=== PATIENT | male | born 1950 | race Caucasian/White ===

== ENCOUNTER 2021-02-18 10:58 | Emergency (ER) | payer SELFPAY ==
--- NOTE | 2021-02-18 12:04 | EDM.PDOC ---
ED HPI GENERAL MEDICAL PROBLEM - General Chief Complaint: General Stated Complaint: UNABLE TO URINATE OR HAVE A BOWEL MOVEMENT Time Seen by Provider: 02/18/21 11:10 Source of Information: Reports: Patient, RN Notes Reviewed History Limitations: Reports: No Limitations - History of Present Illness INITIAL COMMENTS - FREE TEXT/NARRATIVE: Patient is a 71-year-old male presenting to the emergency department with complaints of lower abdominal pain, inability to void, and inability have a bowel movement. He reports last bowel movement was on Thursday morning. Prior to this, he did have but 24 hours worth of diarrhea which he attributed to stomach flu. States he ate some cheese which normally causes constipation for him. His diarrhea did resolve, however he has not been able to have a bowel movement since Thursday. He also reports that over the course the weekend, he has been unable to void. He has been continuously dribbling urine but unable to empty any significant amount. Reports lower abdominal pain and pressure. Denies any nausea or vomiting, but states he has been belching quite frequently. Denies any fever or chills. Treatments INDUCTION HEAT TREATER: Reports: Other (see below) Other Treatments INDUCTION HEAT TREATER: stool softner Lower Abdomen Pain Score (Numeric/FACES): 9 - Related Data Allergies Allergy/AdvReac Type Severity Reaction Status Date / Time No Known Allergies Allergy Verified 02/18/21 11:14 Home Meds: Home Meds Sulfamethoxazole/Trimethoprim [Bactrim Ds Tablet] 1 each PO BID 7 Days #14 tablet 02/18/21 [Rx] Tamsulosin [Tamsulosin 24 Hr] 0.4 mg PO DAILY #30 cap.er 02/18/21 [Rx] Past Medical History - Past Health History Medical/Surgical History: Denies Medical/Surgical History Social & Family History - Tobacco Use Tobacco Use Status *Q: Former Tobacco User Used Tobacco, but Quit: Yes Month/Year Tobacco Last Used: 2013 - Caffeine Use Caffeine Use: Reports: Coffee, Soda, Tea - Recreational Drug Use Recreational Drug Use: No ED ROS GENERAL - Review of Systems Review Of Systems: See Below Constitutional: Reports: No Symptoms. Denies: Fever, Chills HEENT: Reports: No Symptoms Respiratory: Reports: No Symptoms Cardiovascular: Reports: No Symptoms Endocrine: Reports: No Symptoms GI/Abdominal: Reports: Abdominal Pain, Constipation. Denies: Diarrhea, Nausea, Vomiting : Reports: Pain, Urinary Retention Musculoskeletal: Reports: No Symptoms Skin: Reports: No Symptoms Neurological: Reports: No Symptoms Psychiatric: Reports: No Symptoms Hematologic/Lymphatic: Reports: No Symptoms Immunologic: Reports: No Symptoms ED EXAM, GENERAL - Physical Exam Exam: See Below Exam Limited By: No Limitations General Appearance: Alert, WD/WN, No Apparent Distress Respiratory/Chest: No Respiratory Distress, Lungs Clear, Normal Breath Sounds, No Accessory Muscle Use, Chest Non-Tender Cardiovascular: Normal Peripheral Pulses, Regular Rate, Rhythm, No Edema, No Gallop, No JVD, No Murmur, No Rub GI/Abdominal: Normal Bowel Sounds, Soft, No Organomegaly, No Distention, No Abno rmal Bruit, No Mass, Distended, Tender (mid-lower abdominal tenderness) Neurological: Alert, Oriented, CN II-XII Intact, Normal Cognition, Normal Gait, Normal Reflexes, No Motor/Sensory Deficits Psychiatric: Normal Affect, Normal Mood Skin Exam: Warm, Dry, Intact, Normal Color, No Rash Course - Vital Signs Last Recorded V/S: Last Vital Signs Temp 97.8 F 02/18/21 11:12 Pulse 83 02/18/21 11:12 Resp 20 02/18/21 11:12 BP 203/111 H 02/18/21 11:12 Pulse Ox 97 02/18/21 11:12 - Orders/Labs/Meds Labs: Laboratory Tests 02/18/21 02/18/21 02/18/21 Range/Units 11:30 11:32 11:32 WBC 22.21 H (4.23-9.07) K/mm3 RBC 5.13 (4.63-6.08) M/mm3 Hgb 15.6 (13.7-17.5) gm/dl Hct 46.5 (40.1-51.0) % MCV 90.6 (79.0-92.2) fl MCH 30.4 (25.7-32.2) pg MCHC 33.5 (32.2-35.5) g/dl RDW Std Deviation 46.8 H (35.1-43.9) fL Plt Count 251 (163-337) K/mm3 MPV 9.9 (9.4-12.3) fl Neut % (Auto) 87.4 H (34.0-67.9) % Lymph % (Auto) 4.8 L (21.8-53.1) % [place] % (Auto) 7.3 (5.3-12.2) % Eos % (Auto) 0 L (0.8-7.0) Baso % (Auto) 0.1 (0.1-1.2) % Neut # (Auto) 19.41 H (1.78-5.38) K/mm3 Lymph # (Auto) 1.06 L (1.32-3.57) K/mm3 [place] # (Auto) 1.62 H (0.30-0.82) K/mm3 Eos # (Auto) 0.00 L (0.04-0.54) K/mm3 Baso # (Auto) 0.03 (0.01-0.08) K/mm3 Manual Slide Review Abnormal smear Sodium 138 (136-145) mEq/L Potassium 4.0 (3.5-5.1) mEq/L Chloride 102 (98-107) mEq/L Carbon Dioxide 25 (21-32) mEq/L Anion Gap 15.0 (5-15) BUN 26 H (7-18) mg/dL Creatinine 1.5 H (0.7-1.3) mg/dL Est Cr Clr Drug Dosing 52.53 mL/min Estimated GFR (MDRD) 46 (>60) mL/min BUN/Creatinine Ratio 17.3 (14-18) Glucose 148 H (70-99) mg/dL Calcium 10.1 (8.5-10.1) mg/dL Total Bilirubin 1.4 H (0.2-1.0) mg/dL AST 29 (15-37) U/L ALT 35 (16-63) U/L Alkaline Phosphatase 86 (46-116) U/L C-Reactive Protein (<1.0) mg/dL Total Protein 7.7 (6.4-8.2) g/dl Albumin 3.6 (3.4-5.0) g/dl Globulin 4.1 gm/dL Albumin/Globulin Ratio 0.9 L (1-2) Urine Color [place] H (Yellow) Urine Appearance Clear (Clear) Urine pH 6.0 (5.0-8.0) Ur Specific [place] 1.025 (1.005-1.030) Urine Protein 1+ H (Negative) Urine Glucose (UA) Negative (Negative) Urine Ketones Negative (Negative) Urine Occult Blood 1+ H (Negative) Urine Nitrite Positive H (Negative) Urine Bilirubin Negative (Negative) Urine Urobilinogen 1.0 (0.2-1.0) Ur Leukocyte Esterase Negative (Negative) Urine RBC 0-5 (0-5) /hpf Urine WBC 0-5 (0-5) /hpf Ur Squamous Epith Cells Not seen (0-5) /hpf Urine Bacteria Few (FEW) /hpf Urine Mucus Few (FEW) /hpf 02/18/21 Range/Units 11:32 WBC (4.23-9.07) K/mm3 RBC (4.63-6.08) M/mm3 Hgb (13.7-17.5) gm/dl Hct (40.1-51.0) % MCV (79.0-92.2) fl MCH (25.7-32.2) pg MCHC (32.2-35.5) g/dl RDW Std Deviation (35.1-43.9) fL Plt Count (163-337) K/mm3 MPV (9.4-12.3) fl Neut % (Auto) (34.0-67.9) % Lymph % (Auto) (21.8-53.1) % [place] % (Auto) (5.3-12.2) % Eos % (Auto) (0.8-7.0) Baso % (Auto) (0.1-1.2) % Neut # (Auto) (1.78-5.38) K/mm3 Lymph # (Auto) (1.32-3.57) K/mm3 [place] # (Auto) (0.30-0.82) K/mm3 Eos # (Auto) (0.04-0.54) K/mm3 Baso # (Auto) (0.01-0.08) K/mm3 Manual Slide Review Sodium (136-145) mEq/L Potassium (3.5-5.1) mEq/L Chloride (98-107) mEq/L Carbon Dioxide (21-32) mEq/L Anion Gap (5-15) BUN (7-18) mg/dL Creatinine (0.7-1.3) mg/dL Est Cr Clr Drug Dosing mL/min Estimated GFR (MDRD) (>60) mL/min BUN/Creatinine Ratio (14-18) Glucose (70-99) mg/dL Calcium (8.5-10.1) mg/dL Total Bilirubin (0.2-1.0) mg/dL AST (15-37) U/L ALT (16-63) U/L Alkaline Phosphatase (46-116) U/L C-Reactive Protein 3.5 H* (<1.0) mg/dL Total Protein (6.4-8.2) g/dl Albumin (3.4-5.0) g/dl Globulin gm/dL Albumin/Globulin Ratio (1-2) Urine Color (Yellow) Urine Appearance (Clear) Urine pH (5.0-8.0) Ur Specific [place] (1.005-1.030) Urine Protein (Negative) Urine Glucose (UA) (Negative) Urine Ketones (Negative) Urine Occult Blood (Negative) Urine Nitrite (Negative) Urine Bilirubin (Negative) Urine Urobilinogen (0.2-1.0) Ur Leukocyte Esterase (Negative) Urine RBC (0-5) /hpf Urine WBC (0-5) /hpf Ur Squamous Epith Cells (0-5) /hpf Urine Bacteria (FEW) /hpf Urine Mucus (FEW) /hpf - Re-Assessments/Exams Free Text/Narrative Re-Assessment/Exam: 02/18/21 12:02 Patient has had approximately 1200 mils of aubrie-colored urine out of his Gmoez catheter. Reports pain improved significantly after Gomez catheter insertion and emptying of his bladder. Abdomen flat and upright x-rays reviewed by myself and Dr. Goodman. Patient does have a significant amount of air throughout his colon but no air-fluid levels to suggest bowel obstruction. He does have a ball of stool in the rectum. Patient declined a soapsuds enema. States "I am a private person ". He would like to go home and give himself an enema. 02/18/21 12:31 Hematology significant for WBC elevated at 22.21, BUN 26, creatinine 1.5, glucose 148, total bili 1.4, CRP 3.5. Urinalysis shows aubrie color, 1+ protein, 1+ occult blood, positive nitrites. Radiologist interpretation of the abdomen flat and upright show findings suspicious for colonic ileus. Given his elevated WBCs, I recommend a CT scan of the abdomen pelvis to rule out any intra-abdom inal infection, however he refused this. Reports that he would like to be treated for urinary tract infection and go home and give himself an enema. If his symptoms do not improve, he says he will come back to the ER. He is concerned with the cost of additional testing. Emphasized to him that by not completing the tests, there could be infection or other intra-abdominal pathology that goes untreated leading to possible sepsis or . He verbalized understanding of this. States that he will come back if he does not get better. We will send him a prescription for Bactrim for urinary tract infection as well as a mineral oil enema. Recommended referral to urology, however patient declined stating he does not want to go to [facility]. Referral will be sent to Larisa Mccarthy NP in the clinic, to have Gomez catheter removed towards the end of the week. Discharge instructions as documented. Departure - Departure Time of Disposition: 12:57 Disposition: Home, Self-Care 01 Condition: Good Clinical Impression: UTI, Urinary tract infectious disease, Acute urinary retention Elevated white blood cell count, unspecified Qualifiers: Leukocytosis type: unspecified Qualified Code(s): D72.829 - Elevated white blood cell count, unspecified - Discharge Information *PRESCRIPTION DRUG MONITORING PROGRAM REVIEWED*: No *COPY OF PRESCRIPTION DRUG MONITORING REPORT IN PATIENT TAMMY: No Prescriptions: Sulfamethoxazole/Trimethoprim [Bactrim Ds Tablet] 1 each PO BID 7 Days #14 tablet Tamsulosin [Tamsulosin 24 Hr] 0.4 mg PO DAILY #30 cap.er Instructions: Urinary Tract Infection, Adult, Acute Urinary Retention, Male Referrals: Larisa Mccarthy NP [Nurse Practitioner] - Forms: ED Department Discharge Additional Instructions: You were seen in the emergency department today for inability to urinate or have a bowel movement. Gomez catheter was inserted which did drain a significant amount of urine from your bladder. Blood work was completed did show that you have elevated white blood cells. CT scan was recommended, however you declined this. Urinalysis did show urinary tract infection. You have been started on Bactrim for treatment of urinary tract infection as well as Flomax to help with passing of your urine through the prostate. Follow the Gomez catheter care instructions as discussed with you by the nurse. Referral has been sent to Larisa Garcia NP in the clinic. Recommend calling to schedule a follow-up appoint with her towards the end of the week to have the catheter removed. You have also been sent home with a mineral oil enema. Use this when you get home. If your symptoms fail to improve or you experience any worsening symptoms, recommend return to the emergency department for reevaluation. Sepsis Event Note (ED) - Evaluation Sepsis Screening Result: No Definite Risk
--- NOTE | 2021-02-18 12:20 | CR ---
Abdomen: Supine and upright views of the abdomen were obtained. Comparison: No prior abdominal imaging is available. Mildly gas-dilated colon is seen. This is suspicious for ileus. No free air is seen. Bony structures appear within normal limits for the patient's age. No abnormal calcifications are seen. Impression: 1. Findings suspicious for colonic ileus. Diagnostic code #2
== END 2021-02-18 13:22 | disposition home or self-care (01) ==
LOC: JD.ED 10:58
DX: N39.0 Urinary tract infection, site not specified (principal); R33.9 Retention of urine, unspecified; D72.829 Elevated white blood cell count, unspecified; Z87.891 Personal history of nicotine dependence
CPT/HCPCS: 36415; 51702; 74019; 74019-26; 80053; 81001; 85025; 86140; 87086; 99284; 99284-25

== ENCOUNTER 2021-02-23 06:24 | Emergency (ER) | payer SELFPAY ==
--- NOTE | 2021-02-23 07:25 | EDM.PDOC ---
ED HPI GENERAL MEDICAL PROBLEM - General Chief Complaint: Genitourinary Problem Stated Complaint: GENITOURINARY ISSUES Time Seen by Provider: 02/23/21 07:01 Source of Information: Reports: Patient History Limitations: Reports: No Limitations - History of Present Illness INITIAL COMMENTS - FREE TEXT/NARRATIVE: The patient presents with urinary retention. He was seen here last week and was retaining urine. A olmos cath was placed. He had it removed at 2 yesterday. He has not urinated since then He has lower abdominal pain. Onset: Gradual Duration: Day(s): (Yesterday) Location: Reports: Abdomen Quality: Reports: Sharp Severity: Moderate Improves with: Reports: None Worsens with: Reports: None Associated Symptoms: Reports: No Other Symptoms Bladder Pain Score (Numeric/FACES): 10 - Related Data Allergies Allergy/AdvReac Type Severity Reaction Status Date / Time No Known Allergies Allergy Verified 02/23/21 06:36 Home Meds: Home Meds Sulfamethoxazole/Trimethoprim [Bactrim Ds Tablet] 1 each PO BID 7 Days #14 tablet 02/18/21 [Rx] Tamsulosin [Tamsulosin 24 Hr] 0.4 mg PO DAILY #30 cap.er 02/18/21 [Rx] Past Medical History - Past Health History Medical/Surgical History: Denies Medical/Surgical History Social & Family History - Caffeine Use Caffeine Use: Reports: Coffee, Soda, Tea ED ROS GENERAL - Review of Systems Review Of Systems: See Below Constitutional: Reports: No Symptoms HEENT: Reports: No Symptoms Respiratory: Reports: No Symptoms Cardiovascular: Reports: No Symptoms Endocrine: Reports: No Symptoms GI/Abdominal: Reports: Abdominal Pain : Reports: Urinary Retention ED EXAM, RENAL/ - Physical Exam Exam: See Below Exam Limited By: No Limitations General Appearance: Alert, No Apparent Distress Ears: Normal External Exam Nose: Normal Inspection Head: Atraumatic, Normocephalic Neck: Normal Inspection Respiratory/Chest: No Respiratory Distress GI/Abdominal: Other (Pain is better my nurse put in a olmos cath) Course - Vital Signs Last Recorded V/S: Last Vital Signs Temp 96.2 F L 02/23/21 06:31 Pulse 89 02/23/21 06:31 Resp 20 02/23/21 06:31 BP 205/102 H 02/23/21 06:31 Pulse Ox 97 02/23/21 06:31 - Orders/Labs/Meds Orders: Active Orders 24 hr Category Date Time Status Bladder Scan [RC] ASDIRECTED Care 02/23/21 06:46 Active Insert Olmos Catheter [Insert Urinary Catheter] [OM.PC] Care 02/23/21 07:15 Ordered Q24H Urinary Catheter Assessment [RC] ASDIRECTED Care 02/23/21 07:06 Active - Re-Assessments/Exams Free Text/Narrative Re-Assessment/Exam: 02/23/21 07:25 Bladder scan shows he has 1175mls. A olmos cath was placed. 02/23/21 07:43 He feels much better. I will discharge him home and follow up with Sophie Wilson or urology. Departure - Departure Time of Disposition: 07:45 Disposition: Home, Self-Care 01 Condition: Good Clinical Impression: Acute urinary retention - Discharge Information *PRESCRIPTION DRUG MONITORING PROGRAM REVIEWED*: Not Applicable *COPY OF PRESCRIPTION DRUG MONITORING REPORT IN PATIENT TAMMY: Not Applicable Referrals: PCP,None [Primary Care Provider] - Sophie Wilson PA-C [Physician Associate Professor Of Biostatistics] - 1 Week Sim Aguayo MD [Ordering Only Provider] - 1 Week Forms: ED Department Discharge Additional Instructions: Take your medication as prescribed. Follow up with Sophie Wilson or Dr Aguayo a urologist in [place]. Please return if you are worse. Sepsis Event Note (ED) - Evaluation Sepsis Screening Result: No Definite Risk - Focused Exam Vital Signs: Vital Signs Temp Pulse Resp BP Pulse Ox 02/23/21 06:31 96.2 F L 89 20 205/102 H 97
== END 2021-02-23 08:18 | disposition home or self-care (01) ==
LOC: JD.ED 06:24
DX: R33.9 Retention of urine, unspecified (principal); Z79.899 Other long term (current) drug therapy
CPT/HCPCS: 51702; 99283; 99283-25

== ENCOUNTER 2021-03-01 22:26 | Emergency (ER) | payer SELFPAY ==
[2021-03-01] MEDS ORDERED: Phenazopyridine 95 MG Tab PO ONE (23:06)
--- NOTE | 2021-03-01 23:47 | EDM.PDOC ---
ED HPI GENERAL MEDICAL PROBLEM - General Chief Complaint: Genitourinary Problem Stated Complaint: NEEDS A CATH Time Seen by Provider: 03/01/21 22:45 Source of Information: Reports: Patient History Limitations: Reports: No Limitations - History of Present Illness INITIAL COMMENTS - FREE TEXT/NARRATIVE: The patient presents for urinary retention. He was here on the for the same. He took it out this morning and has not urinated since. He did not follow up with urology yet. He did have a UTI and has been treated for that. Onset: Gradual Duration: Hour(s): Location: Reports: Abdomen Quality: Reports: Sharp Severity: Moderate Improves with: Reports: None Worsens with: Reports: None Associated Symptoms: Reports: No Other Symptoms Bladder Pain Score (Numeric/FACES): 10 - Related Data Allergies Allergy/AdvReac Type Severity Reaction Status Date / Time No Known Allergies Allergy Verified 03/01/21 22:54 Home Meds: Home Meds Tamsulosin [Tamsulosin 24 Hr] 0.4 mg PO DAILY #30 cap.er 02/18/21 [Rx] Past Medical History - Past Health History Medical/Surgical History: Denies Medical/Surgical History Genitourinary History: Reports: Retention, Urinary Social & Family History - Tobacco Use Tobacco Use Status *Q: Current Status Unknown - Caffeine Use Caffeine Use: Reports: None ED ROS GENERAL - Review of Systems Review Of Systems: See Below Constitutional: Reports: No Symptoms HEENT: Reports: No Symptoms Respiratory: Reports: No Symptoms Cardiovascular: Reports: No Symptoms Endocrine: Reports: No Symptoms GI/Abdominal: Reports: Abdominal Pain. Denies: Diarrhea, Nausea, Vomiting : Reports: Urinary Retention ED EXAM, RENAL/ - Physical Exam Exam: See Below Exam Limited By: No Limitations General Appearance: Alert, No Apparent Distress Ears: Normal External Exam Nose: Normal Inspection Head: Atraumatic, Normocephalic Neck: Normal Inspection Respiratory/Chest: No Respiratory Distress GI/Abdominal: Tender (mild to lower abdomen) Course - Vital Signs Last Recorded V/S: Last Vital Signs Temp 97.4 F 03/01/21 22:52 Pulse 84 03/01/21 22:52 Resp 18 03/01/21 22:52 BP 138/82 03/01/21 22:52 Pulse Ox 98 03/01/21 22:52 - Orders/Labs/Meds Orders: Active Orders 24 hr Category Date Time Status Insert Urinary Catheter [OM.PC] Q24H Care 03/01/21 23:15 Ordered Urinary Catheter Assessment [RC] ASDIRECTED Care 03/01/21 23:12 Active Labs: Laboratory Tests 03/01/21 Range/Units 22:57 Urine Color Yellow (Yellow) Urine Appearance Clear (Clear) Urine pH 6.0 (5.0-8.0) Ur Specific [place] 1.025 (1.005-1.030) Urine Protein Negative (Negative) Urine Glucose (UA) Negative (Negative) Urine Ketones Negative (Negative) Urine Occult Blood Negative (Negative) Urine Nitrite Negative (Negative) Urine Bilirubin Negative (Negative) Urine Urobilinogen 0.2 (0.2-1.0) Ur Leukocyte Esterase Negative (Negative) Meds: Medications Discontinued Medications Generic Name Dose Route Start Last Admin Trade Name Freq PRN Reason Stop Dose Admin Phenazopyridine HCl 95 mg 03/01/21 23:06 03/01/21 23:15 Phenazopyridine 95 Mg Tab PO 03/01/21 23:07 95 mg ONETIME ONE Administration - Re-Assessments/Exams Free Text/Narrative Re-Assessment/Exam: 03/01/21 23:46 Bladder scan showed over a liter of urine. Gomez catheter was placed. He had some bladder spasms after that so I ordered pyridium. His UA shows no UTI. 03/01/21 23:51 I will discharge him home with follow up with Dr Aguayo or one of his partners. Departure - Departure Time of Disposition: 23:55 Disposition: Home, Self-Care 01 Condition: Good Clinical Impression: Acute urinary retention - Discharge Information *PRESCRIPTION DRUG MONITORING PROGRAM REVIEWED*: Not Applicable *COPY OF PRESCRIPTION DRUG MONITORING REPORT IN PATIENT TAMMY: Not Applicable Referrals: PCP,None [Primary Care Provider] - Sophie Wilson PA-C [Physician Strand Forming Machine Operator] - 1 Week Sim Aguayo MD [Ordering Only Provider] - 1 Week Forms: ED Department Discharge Additional Instructions: Keep taking your medications as prescribed. Follow up with Dr Aguayo a urologist in [place] or one of his partners. Follow up with Sophie Wilson. Please return if you are worse. Sepsis Event Note (ED) - Evaluation Sepsis Screening Result: No Definite Risk - Focused Exam Vital Signs: Vital Signs Temp Pulse Resp BP Pulse Ox 03/01/21 22:52 97.4 F 84 18 138/82 98 - My Orders Last 24 Hours: My Active Orders 03/01/21 23:12 Urinary Catheter Assessment [RC] ASDIRECTED 03/01/21 23:15 Insert Urinary Catheter [OM.PC] Q24H - Assessment/Plan Last 24 Hours: My Active Orders 03/01/21 23:12 Urinary Catheter Assessment [RC] ASDIRECTED 03/01/21 23:15 Insert Urinary Catheter [OM.PC] Q24H
== END 2021-03-02 00:17 | disposition home or self-care (01) ==
LOC: JD.ED 22:26
DX: R33.9 Retention of urine, unspecified (principal); Z79.899 Other long term (current) drug therapy
CPT/HCPCS: 51702; 81003; 99284; A9270

== ENCOUNTER 2021-03-31 19:07 | Emergency (ER) | payer SELFPAY ==
[2021-03-31] MEDS ORDERED: Acetaminophen/oxyCODONE 325-5 MG Tab PO ONE (19:43)
--- NOTE | 2021-03-31 19:47 | EDM.PDOC ---
ED HPI GENERAL MEDICAL PROBLEM - General Chief Complaint: Genitourinary Problem Stated Complaint: cath is plugged Time Seen by Provider: 03/31/21 19:35 Source of Information: Reports: Patient, RN Notes Reviewed History Limitations: Reports: No Limitations - History of Present Illness INITIAL COMMENTS - FREE TEXT/NARRATIVE: Patient is a 71-year-old male who presents to the ER for the evaluation of his urinary retention, patient was seen in this ER last month, and has had a catheter placed for urinary retention. Patient states that it became plugged today and was not draining, so he cut the bag off of the tube, and pulled the tube out of his bladder, he noted that there was some sediment in the tube that he pulled out of the penis. Patient states he is not been able to pee since then, he only dribbles just a little bit. No fevers no chills, no cough no shortness of breath, or any worsening sick-like symptoms, he is having some pain to his lower abdomen/suprapubic area, due to his bladder being extremely full. Patient did not take anything for pain management prior to coming to the ER. Groin Pain Score (Numeric/FACES): 9 - Related Data Allergies Allergy/AdvReac Type Severity Reaction Status Date / Time No Known Allergies Allergy Verified 03/31/21 19:22 Home Meds: Home Meds Tamsulosin [Tamsulosin 24 Hr] 0.4 mg PO DAILY #30 cap.er 02/18/21 [Rx] Cefdinir [Omnicef] 300 mg PO BID 7 Days #14 cap 03/31/21 [Rx] Past Medical History - Past Health History Medical/Surgical History: Denies Medical/Surgical History Genitourinary History: Reports: Retention, Urinary Endocrine/Metabolic History: Reports: Obesity/BMI 30+ Social & Family History - Tobacco Use Tobacco Use Status *Q: Never Tobacco User - Caffeine Use Caffeine Use: Reports: Coffee - Recreational Drug Use Recreational Drug Use: No ED ROS GENERAL - Review of Systems Review Of Systems: Comprehensive ROS is negative, except as noted in HPI. ED EXAM, RENAL/ - Physical Exam Exam: See Below Exam Limited By: No Limitations General Appearance: Alert, WD/WN, No Apparent Distress Respiratory/Chest: No Respiratory Distress, Lungs Clear, Normal Breath Sounds, No Accessory Muscle Use, Chest Non-Tender Cardiovascular: Normal Peripheral Pulses, Regular Rate, Rhythm, No Edema GI/Abdominal: Normal Bowel Sounds, Soft, No Distention, No Mass, Tender (suprapubic tenderness/fullness) (Male) Exam: Suprapubic Fullness. No: Penile Lesions, Scrotal Swelling, Scrotum Tenderness (L), Scrotum Tenderness (R), Testicular Tenderness (L), Testicular Tenderness (R), Urethral Discharge Extremities: Normal Inspection, Normal Capillary Refill Neurological: Alert, Oriented, Normal Cognition, No Motor/Sensory Deficits Psychiatric: Anxious (pt appears to be in moderate amount of pain) Skin Exam: Warm, Dry, Intact, Normal Color, No Rash Course - Vital Signs Last Recorded V/S: Last Vital Signs Temp 96.9 F 03/31/21 19:20 Pulse 123 H 03/31/21 19:20 Resp 16 03/31/21 19:20 BP 214/127 H 03/31/21 19:20 Pulse Ox 98 03/31/21 19:20 - Orders/Labs/Meds Orders: Active Orders 24 hr Category Date Time Status Gomez Catheter Insertion [Insert Urinary Catheter] [OM. Care 03/31/21 19:41 Ordered PC] Stat Urinary Catheter Assessment [RC] ASDIRECTED Care 03/31/21 19:42 Active URINALYSIS W/MICROSCOPIC [UA W/MICROSCOPIC] [URIN] Stat Lab 03/31/21 19:34 Received Labs: Laboratory Tests 03/31/21 Range/Units 19:34 Urine Color Yellow (Yellow) Urine Appearance Slt cloudy H (Clear) Urine pH 6.5 (5.0-8.0) Ur Specific [place] > or = 1.030 (1.005-1.030) Urine Protein 1+ H (Negative) Urine Glucose (UA) Negative (Negative) Urine Ketones Negative (Negative) Urine Occult Blood 2+ H (Negative) Urine Nitrite Positive H (Negative) Urine Bilirubin Negative (Negative) Urine Urobilinogen 0.2 (0.2-1.0) Ur Leukocyte Esterase 3+ H (Negative) Meds: Medications Discontinued Medications Generic Name Dose Route Start Last Admin Trade Name Freq PRN Reason Stop Dose Admin Cefdinir 300 mg 03/31/21 20:32 Cefdinir 300 Mg Cap PO 03/31/21 20:33 ONETIME ONE Oxycodone/Acetaminophen 2 tab 03/31/21 19:43 Acetaminophen/Oxycodone 325-5 Mg Tab PO 03/31/21 19:44 ONETIME ONE - Re-Assessments/Exams Free Text/Narrative Re-Assessment/Exam: 03/31/21 19:46 Patient presents in urinary retention, we will go ahead and get a Gomez catheter placed, it does appear as if they have collected a urine sample at the time of triage. Patient was requesting something for pain so I have ordered 2 tablets of Percocet 5/325 mg for management. 03/31/21 20:33 Urinalysis is grossly positive for UTI, nitrite positive, 3+ leukocyte Estrace, will go ahead and start the patient on Omnicef for management, and have him follow-up in a few days if not much better. Urine culture has been sent. Departure - Departure Time of Disposition: 20:34 Disposition: Home, Self-Care 01 Condition: Good Clinical Impression: Urinary retention UTI (urinary tract infection) Qualifiers: Urinary tract infection type: acute cystitis Hematuria presence: with hematuria Qualified Code(s): N30.01 - Acute cystitis with hematuria - Discharge Information *PRESCRIPTION DRUG MONITORING PROGRAM REVIEWED*: No *COPY OF PRESCRIPTION DRUG MONITORING REPORT IN PATIENT TAMMY: No Prescriptions: Cefdinir [Omnicef] 300 mg PO BID 7 Days #14 cap Instructions: Urinary Tract Infection, Adult, [id number] Referrals: PCP,None [Primary Care Provider] - Forms: ED Department Discharge Additional Instructions: You have been evaluated in the ED for your urinary symptoms. Your urinalysis was consistent with an acute urinary tract infection. Your urine was sent for culture, and you will be notified if you should need a change in yo ur antibiotic. This may take up to 48 hours to result. A Gomez catheter was again placed into your bladder, to help facilitate bladder drainage. You have been given a prescription for Omnicef (cefdinir), 300 mg 1 tablet 2 times a day for 7 days. Please note that the antibiotics can take up to 48 hours to start working. Your first dose was given in the ER today, you will need to go to the [place] pharmacy located in the [facility], tomorrow to pick these up and take as directed. Please increase your oral fluid intake and try to stay adequately hydrated. Please follow-up with your regular care provider, at the next available appointment, to make sure that your symptoms are getting better as expected. Please return to the ED if your symptoms change or worsen. Sepsis Event Note (ED) - Evaluation Sepsis Screening Result: No Definite Risk - Focused Exam Vital Signs: Vital Signs Temp Pulse Resp BP Pulse Ox 03/31/21 19:20 96.9 F 123 H 16 214/127 H 98 - My Orders Last 24 Hours: My Active Orders 03/31/21 19:34 URINALYSIS W/MICROSCOPIC [UA W/MICROSCOPIC] [URIN] Stat 03/31/21 19:41 Gomez Catheter Insertion [Insert Urinary Catheter] [OM.PC] Stat 03/31/21 19:42 Urinary Catheter Assessment [RC] ASDIRECTED - Assessment/Plan Last 24 Hours: My Active Orders 03/31/21 19:34 URINALYSIS W/MICROSCOPIC [UA W/MICROSCOPIC] [URIN] Stat 03/31/21 19:41 Gomez Catheter Insertion [Insert Urinary Catheter] [OM.PC] Stat 03/31/21 19:42 Urinary Catheter Assessment [RC] ASDIRECTED
[2021-03-31] MEDS ORDERED: Cefdinir 300 MG Cap PO ONE (20:32)
== END 2021-03-31 21:15 | disposition home or self-care (01) ==
LOC: JD.ED 19:07
DX: N30.01 Acute cystitis with hematuria (principal); R33.9 Retention of urine, unspecified; E66.9 Obesity, unspecified; Z68.32 Body mass index [BMI] 32.0-32.9, adult; Z79.899 Other long term (current) drug therapy
CPT/HCPCS: 51702; 81001; 87086; 87088; 87186; 99283; A9270; 87147

== ENCOUNTER 2021-05-28 20:58 | Emergency (ER) | payer SELFPAY ==
--- NOTE | 2021-05-28 21:38 | EDM.PDOC ---
ED HPI GENERAL MEDICAL PROBLEM - General Chief Complaint: Genitourinary Problem Stated Complaint: NEEDS CATH/PAIN Time Seen by Provider: 05/28/21 21:16 Source of Information: Reports: Patient, RN Notes Reviewed History Limitations: Reports: No Limitations - History of Present Illness INITIAL COMMENTS - FREE TEXT/NARRATIVE: Patient is a 71 year old male who presents to the ED for his urinary retention. The patient has been seen for this multiple times. Has had UTIs in the past. Patient states that he did follow-up with urology, yesterday with Naresh Randle NP at [facility] in [place], and he had his catheter removed, and they did some testing and he was able to void without difficulty. He returned home, but notes that he has not peed since he left the urologist. He notes that he has some lower bladder pain. He states that he also has issues with constipation at times. He is not taking anything for this. He is also not taking anything for the bladder pain. He has had no fevers or chills, cough shortness breath, any sort of nausea/vomiting/diarrhea. Bladder Pain Score (Numeric/FACES): 8 - Related Data Allergies Allergy/AdvReac Type Severity Reaction Status Date / Time No Known Allergies Allergy Verified 05/28/21 21:14 Home Meds: Home Meds Tamsulosin [Tamsulosin 24 Hr] 0.4 mg PO DAILY #30 cap.er 02/18/21 [Rx] Acetaminophen/oxyCODONE [Percocet 325-5 MG] 1 each PO Q6H PRN #12 tab 03/31/21 [Rx] Cefdinir [Omnicef] 300 mg PO BID 7 Days #14 cap 05/28/21 [Rx] Past Medical History Gastrointestinal History: Reports: Chronic Constipation Genitourinary History: Reports: Prostate Disorder, Retention, Urinary, UTI, Recurrent Endocrine/Metabolic History: Reports: Obesity/BMI 30+ Social & Family History - Tobacco Use Tobacco Use Status *Q: Never Tobacco User - Caffeine Use Caffeine Use: Reports: Coffee ED ROS GENERAL - Review of Systems Review Of Systems: Comprehensive ROS is negative, except as noted in HPI. ED EXAM, RENAL/ - Physical Exam Exam: See Below Exam Limited By: No Limitations General Appearance: Alert, WD/WN, No Apparent Distress Respiratory/Chest: No Respiratory Distress, Lungs Clear, Normal Breath Sounds, No Accessory Muscle Use, Chest Non-Tender Cardiovascular: Normal Peripheral Pulses, Regular Rate, Rhythm, No Edema GI/Abdominal: Normal Bowel Sounds, Soft, No Distention, No Mass, Tender (over the suprapubic area) (Male) Exam: Suprapubic Fullness. No: Urethral Discharge Extremities: Normal Inspection, Normal Capillary Refill Neurological: Alert, Oriented, Normal Cognition, No Motor/Sensory Deficits Psychiatric: Normal Affect, Normal Mood Skin Exam: Warm, Dry, Intact, Normal Color, No Rash Course - Vital Signs Last Recorded V/S: Last Vital Signs Temp 97.8 F 05/28/21 21:11 Pulse 80 05/28/21 21:11 Resp 18 05/28/21 21:11 BP 130/86 05/28/21 21:11 Pulse Ox 98 05/28/21 21:11 - Orders/Labs/Meds Orders: Active Orders 24 hr Category Date Time Status Insert Urinary Catheter [OM.PC] Stat Care 05/28/21 21:15 Ordered Urinary Catheter Assessment [RC] ASDIRECTED Care 05/28/21 21:24 Active CULTURE URINE [MREF] Urgent Lab 05/28/21 22:09 Ordered Labs: Laboratory Tests 05/28/21 Range/Units 21:20 Urine Color Yellow (Yellow) Urine Appearance Slt cloudy H (Clear) Urine pH 6.0 (5.0-8.0) Ur Specific [place] 1.015 (1.005-1.030) Urine Protein Trace H (Negative) Urine Glucose (UA) Negative (Negative) Urine Ketones Negative (Negative) Urine Occult Blood 3+ H (Negative) Urine Nitrite Positive H (Negative) Urine Bilirubin Negative (Negative) Urine Urobilinogen 0.2 (0.2-1.0) Ur Leukocyte Esterase 3+ H (Negative) Urine RBC >100 H (0-5) /hpf Urine WBC Too numerous to cnt H (0-5) /hpf Ur Squamous Epith Cells 0-5 (0-5) /hpf Urine Bacteria Few (FEW) /hpf Urine Mucus Not seen (FEW) /hpf Meds: Medications Discontinued Medications Generic Name Dose Route Start Last Admin Trade Name Freq PRN Reason Stop Dose Admin Cefdinir 300 mg 05/28/21 21:54 05/28/21 22:05 Cefdinir 300 Mg Cap PO 05/28/21 21:55 300 mg ONETIME ONE Administration Phenazopyridine HCl 95 mg 05/29/21 21:32 Phenazopyridine 95 Mg Tab PO 05/29/21 21:33 ONETIME ONE Phenazopyridine HCl 95 mg 05/28/21 21:44 05/28/21 21:48 Phenazopyridine 95 Mg Tab PO 05/28/21 21:45 95 mg ONETIME ONE Administration - Re-Assessments/Exams Free Text/Narrative Re-Assessment/Exam: 05/28/21 21:37 Patient presents to the ER for evaluation of his urinary retention, nursing staff did place a catheter at the time of triage, he states that most of his pain subsided after the catheter was placed. The urine itself did look somewhat cloudy, with some slight blood in it and a urinalysis was also obtained. Patient is complaining still of some burning in his bladder. He also was concerned about feeling gassy, and the possibility of being constipated. I did tell him that he could take senna [id number] for continued bowel health, and he will get this and take as directed. 05/28/21 22:09 The patient's urinalysis is grossly positive for UTI. Culture will be sent for antibiotic stewardship patient will be started on Omnicef for ongoing management. Departure - Departure Time of Disposition: 22:09 Disposition: Home, Self-Care 01 Condition: Good Clinical Impression: Acute urinary retention UTI (urinary tract infection) Qualifiers: Urinary tract infection type: acute cystitis Hematuria presence: with hematuria Qualified Code(s): N30.01 - Acute cystitis with hematuria - Discharge Information *PRESCRIPTION DRUG MONITORING PROGRAM REVIEWED*: No *COPY OF PRESCRIPTION DRUG MONITORING REPORT IN PATIENT TAMMY: No Instructions: Urinary Tract Infection, Adult, [id number], Acute Urinary Retention, Male, [id number] Referrals: Naresh Randle [employer] [Ordering Only Provider] - Forms: ED Department Discharge Additional Instructions: You have been evaluated in the ED for your urinary symptoms and urinary retention. A catheter was placed at today's visit, this did seem to allow you to drain your bladder without difficulty. Your urinalysis was consistent with an acute urinary tract infection. Your urine was sent for culture, and you will be notified if you should need a change in your antibiotic. If you do not hear from us, please assume that the antibiotic given to you today was appropriate for the bacteria growing out in your urine culture; and take until the course of antibiotic is gone. You may take AZO for urinary pain relief. This is available over the counter, and can be attained at any retail store like [employer] or any pharmacy. Please be aware that this medication will make your urine turn orange. You should only use this medication for a time period not longer than 72 hours. You have been given a prescription for Omnicef (cefdinir), 300 mg 1 tablet 2 times a day for 7 days. Please note that the antibiotics can take up to 48 hours to start working. This medication was electronically sent to the [place] pharmacy located in the [facility] grocery store. Please increase your oral fluid intake and try to stay adequately hydrated. Regarding your constipation issues, you may obtain an [id number] laxative/stimulant or stool softener. Senna, Dulcolax, Colace, or MiraLAX would be sufficient to help provide you further bowel health. These can be obtained at any retail space like [employer], or any local pharmacy. These can be taken on a daily basis for regular bowel health. Please return to the ED if your symptoms change or worsen. Sepsis Event Note (ED) - Evaluation Sepsis Screening Result: No Definite Risk - Focused Exam Vital Signs: Vital Signs Temp Pulse Resp BP Pulse Ox 05/28/21 21:11 97.8 F 80 18 130/86 98 - My Orders Last 24 Hours: My Active Orders 05/28/21 21:15 Insert Urinary Catheter [OM.PC] Stat 05/28/21 21:24 Urinary Catheter Assessment [RC] ASDIRECTED 05/28/21 22:09 CULTURE URINE [MREF] Urgent - Assessment/Plan Last 24 Hours: My Active Orders 05/28/21 21:15 Insert Urinary Catheter [OM.PC] Stat 05/28/21 21:24 Urinary Catheter Assessment [RC] ASDIRECTED 05/28/21 22:09 CULTURE URINE [MREF] Urgent
[2021-05-28] MEDS ORDERED: Phenazopyridine 95 MG Tab PO ONE (21:44)
[2021-05-28] MEDS ORDERED: Cefdinir 300 MG Cap PO ONE (21:54)
[2021-05-29] MEDS ORDERED: Phenazopyridine 95 MG Tab PO ONE (21:32)
== END 2021-05-28 22:40 | disposition home or self-care (01) ==
LOC: JD.ED 20:58
DX: N30.01 Acute cystitis with hematuria (principal); R33.9 Retention of urine, unspecified; E66.9 Obesity, unspecified; Z68.23 Body mass index [BMI] 23.0-23.9, adult
CPT/HCPCS: 51702; 81001; 87086; 99283; A9270; 87077